=== PATIENT | female | born 1955 | race Caucasian/White ===

== ENCOUNTER 2024-04-23 05:40 | Day surgery (SDC) | payer MEDICARE, OTHER ==
[2024-04-22 13:56] VITALS: BP 119/72
[~2024-04-23] VITALS: Ht 170.2 cm; Wt 86.4 kg
--- NOTE | ~2024-04-23 | OR ---
[facility] [address], [place] [address] Draft DATE OF OPERATION: 04/23/2024 SURGEON: Oli Trotter DPM PREOPERATIVE DIAGNOSES: 1. Hallux valgus, right foot. 2. Hammertoes, right 2nd and 3rd toes. 3. 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 POSTOPERATIVE DIAGNOSES: 1. Hallux valgus, right foot. 2. Hammertoes, right 2nd and 3rd toes. 3. 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 ASSISTANT ART DIRECTOR SURGEON: Prashanth Roman DPM ANESTHESIA: IV general with local block, right foot. DOUBLE END TRIMMER: Derrick Morris. SPECIMEN TO PATHOLOGY: None. PROCEDURES: 1. Bunionectomy with 1st metatarsal osteotomy, right foot. 2. Hammertoe correction, right 2nd and 3rd toes. 3. Percutaneous extensor tenotomy, right 2nd and 3rd toe tendons performed at the dorsal forefoot. DESCRIPTION OF PROCEDURE: The patient was brought to the operating room and placed on the table in the supine position. Anesthesia Department administered IV sedation after which a local block was given to the right foot using a total of 12 mL 1:1 mixture 0.5% ropivacaine plain and 2% lidocaine plain. The right leg and foot was then prepped and draped in the usual sterile manner and an Esmarch was used for hemostasis. Procedure #1: Bunionectomy with 1st metatarsal osteotomy, right foot. Attention was PATIENT NAME: BLAZE AGOSTO OPERATIVE REPORT DATE OF : 55 REPORT #: [id number] PHYSICIAN: OLI TROTTER DPM PCP: ADA PHILIP REPORT IS CONFIDENTIAL AND NOT TO BE RELEASED WITHOUT AUTHORIZATION [facility] [address], [place] [address] Draft initially directed to the dorsal/medial aspect right 1st metatarsophalangeal joint where a linear longitudinal incision was made centered over the joint, approximately 1 cm medial to the extensor hallucis longus tendon. The incision was 6-8 cm in length, initially full-thickness through the dermis and deepened through subcutaneous tissue using careful dissection and cautery as necessary for hemostasis. Once at the level of deep fascia and joint capsule, the incision was deepened to bone and soft tissues reflected medially to expose the bony prominence at the medial 1st metatarsal head. The medial bony prominence was then resected using power instrumentation, removing approximately 2 mm of bone. At this time, attention was directed to the dorsal 1st metatarsal head where bone spurring was noted on preoperative x-rays. The area of bone spurring was resected using power and hand instrumentation. At this time, attention was directed to the 1st intermetatarsal space where a lateral release was performed. Attention then directed to the medial 1st metatarsal head where a chevron osteotomy was made from medial to lateral through the metatarsal head with a long dorsal arm. The metatarsal head was then shifted laterally approximately mm then fixated with K-wires. The position and alignment to the 1st metatarsal were then checked with intraoperative fluoroscopy and alignment deemed adequate. At this time, screws were placed over the temporary K-wire fixation and the osteotomy site secured. The power instrumentation then used to resect the remaining shelf of bone medially and the osteotomy area at the 1st metatarsal head, then smoothed removing any sharp or rough areas. The surgical site then irrigated with normal saline. At this time, capsular and deep fascia was closed with 3-0 Vicryl, subcutaneous tissue closed with 4-0 Vicryl and skin closed with skin charles. Procedure #2: Hammertoe correction, right 2nd and 3rd toes. Attention was initially directed to the dorsal PIPJ area right 2nd digit where a transverse elliptical incision was made over the joint with the skin ellipse removed. An incision was made transversely across the joint opening the joint capsule and transecting the extensor tendon as well. Soft tissues then reflected proximally to expose the head of the proximal phalanx which was then resected using power instrumentation. A small amount of the base of the intermediate phalanx was also resected at this time with power instrumentation. A K-wire was then used to create a drill hole down the center of the proximal phalanx and intermediate phalanx in preparation for the joint fusion implant. The implant was then placed and the toe fixated. This provided good bony approximation and a secure fusion site. The same procedure was then performed for the right 3rd digit without additions or deletions. Procedure #3: Extensor tenotomy for the extensor tendons to the right 2nd and 3rd toes. The position to the toe was noted to have a tight extensor tendon which was keeping the toe elevated an extensor percutaneous extensor tenotomy performed over the dorsal PATIENT NAME: BLAZE AGOSTO OPERATIVE REPORT DATE OF : 55 REPORT #: [id number] PHYSICIAN: OLI TROTTER DPM PCP: ADA PHILIP REPORT IS CONFIDENTIAL AND NOT TO BE RELEASED WITHOUT AUTHORIZATION [address] [address] Draft forefoot. This provided significant improvement and good alignment to the 3rd digit, 2nd digit, however, remained slightly elevated, a percutaneous capsulotomy then performed at the 2nd MTP joint, which allowed good release and good alignment to 2nd digit as well. INTRAOPERATIVE COMPLICATIONS: None. ESTIMATED BLOOD LOSS: Less than 5 mL. The patient tolerated the procedure and the anesthesia well and left the operating room with vital signs stable and vascular status intact to the right foot as evidenced by hyperemia with removal of the Esmarch. The 2nd and 3rd toes were slightly slower to gain color following the procedure, but within 5 minutes. There was good color noted to all of the toes, right foot. Oli Trotter DPM DFSharan/MARBINL /[id number] Copies: ~ PATIENT NAME: BLAZE AGOSTO OPERATIVE REPORT DATE OF : 55 REPORT #: [id number] PHYSICIAN: OLI TROTTER DPM PCP: ADA PHILIP REPORT IS CONFIDENTIAL AND NOT TO BE RELEASED WITHOUT AUTHORIZATION
[~2024-04-23 05:40] MED LIST: ABILIFY10 MG PO; LACTATED RINGER'S 1,000 ML IV SCH
[2024-04-23 06:03] VITALS: BP 146/69
[2024-04-23] MEDS ORDERED: LIDOCAINE HCL 2% 20 ML MDV ONE (06:52)
[2024-04-23] MEDS ORDERED: Ropivacaine HCl 20 MG/10 ML AMP ONE ×2 (06:52→08:03)
[2024-04-23] MEDS ORDERED: DEXAMETHASONE SOD PHOS 4 MG/ML VIAL ONE ×3 (06:52→10:34)
[2024-04-23] MEDS ORDERED: LIDOCAINE HCL 2% 5 ML SDV ONE ×2 (06:56→10:34)
[2024-04-23] MEDS ORDERED: ondansetron HCL 4 MG/2 ML VIAL ONE (06:56)
[2024-04-23] MEDS ORDERED: fentaNYL citrate 100 MCG/2 ML VIAL ONE ×2 (06:56→07:49)
[2024-04-23] MEDS ORDERED: KETOROLAC TROMETHAMINE 30 MG/ML VIAL ONE (06:56)
[2024-04-23] MEDS ORDERED: propofoL 200 MG/20 ML VIAL ONE ×8 (06:56→09:35)
[2024-04-23] MEDS ORDERED: ACETAMINOPHEN 1,000 MG/100 ML VIAL ONE (06:56)
[2024-04-23] MEDS ORDERED: CEFAZOLIN SODIUM 1 GM/10 ML SYR IV SCH (07:00)
[2024-04-23] MEDS ORDERED: IBLOOD GLUCOSE TEST STRIP 1 EA TEST VI PRN ×2 (07:00→09:45)
[2024-04-23] MEDS ORDERED: LIDOCAINE HCL 1% 5 ML SDV INJ ONE (07:00)
[2024-04-23] MEDS ORDERED: fentaNYL citrate 50 MCG/ML SDV IV PRN (09:45)
[2024-04-23] MEDS ORDERED: PROCHLORPERAZINE EDISYLATE 10 MG/2 ML VIAL IV PRN (09:45)
[2024-04-23] MEDS ORDERED: droPERidol 5 MG/2 ML VIAL IV PRN (09:45)
[2024-04-23] MEDS ORDERED: ondansetron HCL 4 MG/2 ML VIAL IV PRN (09:45)
[2024-04-23] MEDS ORDERED: NALOXONE HCL 0.4 MG SYR IV PRN (09:45)
[2024-04-23] MEDS ORDERED: HYDROmorphone HCL 1 MG/ML SYR IV PRN (09:45)
--- NOTE | 2024-04-23 10:04 | NUR ---
04/23/24 Tan4 Marisol Barbosa PATIENT BEGINS TO SWALLOW WITH ORAL AIRWAY IN PLACE. SHE FOLLOWS INSTRUCTIONS TO OPEN HER MOUTH. ORAL AIRWAY IS REMOVED. GAS EXCHANGE IS VISUALIZED IN THE OXYGEN MASK. PATIENT RETURNS TO RESTING QUIETLY WHEN UNSTIMULATED. RESPIRATIONS EVEN AND UNLABORED.
[2024-04-23] MEDS ORDERED: Ropivacaine HCl 0.5% 30 ML VIAL ONE (10:34)
[2024-04-23 10:54] VITALS: BP 115/66
== END 2024-04-23 11:08 | disposition home or self-care (01) ==
LOC: DS 05:40
PROVIDERS: ATTEND Podiatrist Foot Surgery
PROC: 0LNV3ZZ Release Right Foot Tendon, Percutaneous Approach (ICD-10-PCS; 2024-04-23)
PROC: 0SN Lower Joints, Release (ICD-10-PCS; 2024-04-23)
PROC: 0SGP0JZ Fusion of Right Toe Phalangeal Joint with Synthetic Substitute, Open Approach (ICD-10-PCS; principal; 2024-04-23 07:30)
PROC: 0QSN04Z Reposition Right Metatarsal with Internal Fixation Device, Open Approach (ICD-10-PCS; 2024-04-23 07:30)
DX: M20.11 Hallux valgus (acquired), right foot (principal); M20.41 Other hammer toe(s) (acquired), right foot; M20.5X1 Other deformities of toe(s) (acquired), right foot
CPT/HCPCS: 73620; 73630; J0131; J1100; J1885; J2001; J2405; J2704; J2795; J3010; J7121

== ENCOUNTER 2025-09-11 20:21 | Emergency (ER) | payer MEDICARE, OTHER ==
[~2025-09-11] VITALS: Ht 170.2 cm; Wt 88.0 kg
[~2025-09-11 20:21] MED LIST changes: -LACTATED RINGER'S 1,000 ML IV SCH
[2025-09-11] MEDS ORDERED: METHYLPREDNISOLO4 M1 PO (21:01)
[2025-09-11] MEDS ORDERED: HYDROCODONE BIT/ACETAMINOPHEN 5/325 MG 1 TAB HOME.PACK PO ONE (21:15)
== END 2025-09-11 21:17 | disposition home or self-care (01) ==
LOC: ED 20:21
DX: M75.51 Bursitis of right shoulder (principal); Z79.899 Other long term (current) drug therapy
CPT/HCPCS: 99283; A9270